=== PATIENT | female | born 2005 | race Caucasian/White ===

== ENCOUNTER 2024-09-05 13:44 | Outpatient (REF) | payer OTHER, SELFPAY ==
--- OUTSIDE RECORDS SUMMARY | 2024-09-05 14:56 | XMS_ITS | Clinical Summary ---
Author Organization [employer] Address [address] [facility] [address] [place] [address] Care Team Providers Care Biomedical Manager Name Role Phone Neva Her JACINTO Primary Care Provider [phone] Allergies No known active allergies Medications levonorgestrel-et hinyl estradiol (Aviane, Alesse, Lessina) 0.1-20 MG-MCG tabletIndications :Encounter for counseling regarding contraception Take 1 tablet by mouth in the morning. 90 tablet 3 3 Active albuterol 108 (90 Base) MCG/ACT inhaler Inhale 2 puffs every 4 (four) hours if needed for wheezing. 18 g 11 3 Active tretinoin (Retin-A) 0.025 % gel Apply topically at bedtime. 45 g 11 5 04/27/19 26 Active Mometasone Furoate (Asmanex HFA) 200 MCG/ACT aerosol 1 puff po bid 13 g 11 5 09/03/19 26 Active predniSONE (Deltasone) 20 MG tablet Take 2 tabs orally daily for 5 days 10 tablet 5 09/03/19 25 Active Problems Problem Noted Date Diagnosed Date Myopia 03/09/2017 Encounters Date Type Department Care Team Description 09/02/2024 Telephone [facility] MED [facility] P[facility] [address] [place] [address] Jackie Nagel MD 07/07/2024 Orders Only [facility] [address] [place] [address] Jackie Nagel MD Screening-pulmonary TB (Primary Dx) from Last 3 Months Immunizations Name Administration Dates Next Due DTaP 09/13/2008, 6,2004,10/31,2004 HPV 9-Valent 10/23/2016,02/20/2016 Hep A, ped/adol, 2 dose 02/08/2015,01/15/2014 Hep B, Adolescent or Pediatric 5,2004,2004,06/29 Hib (HbOC) 10/06/2005, 5,2004,09/02 IPV 09/13/2008, 5,2004,09/02 Influenza Injectable Quadriv alant Preservative Free IIV4 MDCK 01/18/2020,02/04/2017 Influenza injectable quadriv alent preservative free 04/02/2022,01/19/2021,03/13/2019,03/14,02/20/2016 Influenza live intranasal qu adrivalent LIAV4 01/28/2015,01/15/2014 Influenza, IIV3, injectable 02/15/2006, 5,03/04/2005 Influenza, live, intranasal 01/04/2013 MMR 09/13/2008,07/07/2005 Meningococcal MCV4P ACYW-135 11/14/2020,02/20/20 16 Pfizer Covid-19 Vaccine 12+ 08/30/2020, 1 Pneumococcal Conjugate PCV 7 10/06/2005, 2004,2004,09/02 Tdap 02/20/2016 Varicella 09/13/2008,07/07/2005 Social History Tobacco Use Types Packs/Day Years Used Date Smoking Tobacco: Never Smokeless Tobacco: Never Tobacco Cessation:Counseling Given: Not Answered Alcohol Use Standard Drinks/Week Comments Never 0 (1 standard drink = 0.6 oz pur e alcohol) Depression Answer Date Recorded Patient Health Questionnaire-9 Score 0 11/16/2022 Housing Stability Answer Date Recorded What is your housing situation today? I have [employer] cr 03/01/[address] you li ve. Do you have problems with any of the following? None of the above 03/01/2023 Food Insecurity Answer Date Recorded Within the past 12 months, y ou worried that your food would run out before you got money to buy more: Never True 03/01/2023 Within the past 12 months,th e food you bought just didn't last and you didn't have enough money to get more: Never True 09/2022 Utilities Answer Date Recorded In the past 12 months, has t he electric, gas, oil or water company threatened to shut off services in your home? No 03/01/2023 Depression Answer Date Recorded Patient Health Questionnaire-2 Score 0 11/16/2022 Comments Unknown Sex and Gender Information Value Date Recorded Sex Assigned at Female 02/23/2022 10:18 AM EDT Legal Sex Female 10:18 AM EDT Gender Identity Female 02/23/2022 10:18 AM EDT Sexual Orientation Bisexual 02/23/2022 10 :18 AM EDT Last Filed Vital Signs Vital Sign Reading Time Taken Comments Blood Pressure 105/60 11/16/2022 10:47 AM EDT Pulse 91 11/16/2022 10:47 AM EDT Temperature 37.1 ??C (98.8 ??F) 11/16/2022 1 0:47 AM EDT Respiratory Rate 16 11/16/2022 10:4 7 AM EDT Oxygen Saturation 100% 11/16/2022 10: 47 AM EDT Inhaled Oxygen Concentration - - Weight 50.7 kg (111 lb 12.8 oz) 023 10:47 AM EDT Height 157.5 cm (5' 2 ) 11/16/2022 10:4 7 AM EDT Body Mass Index 20.45 11/16/2022 10:47 AM EDT Plan of Treatment Health Maintenance Due Date Last Done Comments Chlamydia and Gonorrhea Screening 2004 HIV Screening 2004 Alcohol/Substance Use Screening 2016 Family Planning (PISQ) 06/30/2019 Hepatitis C Screening 2022 Depression Screening 11/17/2023 11/16/2022, 11/17/19 23 SDOH Screening 11/17/2023 11/16/2022 Tobacco Screening 11/24/2023 11/23/2022 COVID-19 Vaccine ( season) 2023 01/24/2022, 08/30/2020, 08/09/2020 Influenza Vaccine (#1) 2023 2, 01/19/2021, 01/18/2020, Additional history exists DTaP/Tdap/Td Vaccines (7 - Td or Tdap) 02/19/2026 02/20/2016, 09/13/2008, 10/06/2005, Additional history exists Zoster Vaccines (1 of 2) 2054 RSV Patients and Patients Aged 60 years or older (1 - 1-dose 75+ series) 06/30/2079 Hepatitis B Vaccines Completed 2004, 2004, 2004, Additional history exists HIB Vaccines Completed 10/06/2005, 09/2004, 2004, Additional history exists Pneumococcal Vaccine: Pediatrics (0 to 5 Years) and At-Risk Patients (6 to 49) Years) Aged Out 10/06/2005, 2004, 2004, Additional history exists No longer eligible based on patient's age to complete this topic IPV Vaccines Completed 09/13/2008, 09/2004, 2004, Additional history exists Hepatitis A Vaccines Completed 02/08/2015, 01/16/20 14 HPV Vaccines Completed 10/23/2016, 02/20/2016 Meningococcal Vaccine Completed 11/14/2020, 016 RSV under 20 months Aged Out No longe r eligible based on patient's age to complete this topic Rotavirus Vaccines Aged Out No longer eligible based on patient's age to complete this topic Insurance [facility] Care Teams Biomedical Manager Relationship Specialty Start Date End Date Neva Her NP [address] [place] [id number] PCP - General Family Medicine 10/22/23
--- OUTSIDE RECORDS SUMMARY | 2024-09-05 14:56 | XMS_ITS | Encounter Summary ---
Author Organization [employer] Address [address] [facility] [address] [place] [address] Care Team Providers Care Web Sizer Name Role Phone Oralia Smith MD Primary Care Provider [phone] Nathalie Wagner Primary Care Provider + Neva Her NP Primary Care Provider [phone] Encounter Details Date Type Department Care Team (Late st Contact Info) Description 05/25/2022 Orders Only [facility] MEDICINE [address] [place] [address] Jesika Rojas LPN Social History Tobacco Use Types Packs/Day Years Used Date Smoking Tobacco: Never Assessed Comments Unknown Sex and Gender Information Value Date Recorded Sex Assigned at Female 02/23/2022 10:18 AM EDT Legal Sex Female 10:18 AM EDT Gender Identity Female 02/23/2022 10:18 AM EDT Sexual Orientation Bisexual 02/23/2022 10 :18 AM EDT documented as of this encounter Plan of Treatment Not on file documented as of this encounter Visit Diagnoses Not on filedocumented in this encounter Care Teams Web Sizer Relationship Specialty Start Date End Date Oralia Smith MD [address] [place] [id number] PCP - General Pediatrics 03/09/17 12/22/22 Nathalie Wagner FNP [address] [place] [id number] PCP - General Family Medicine 12/23/22 10/21/23 Neva Her NP [address] [place] [phone] PCP - General Family Medicine 10/22/23 documented as of this encounter
--- OUTSIDE RECORDS SUMMARY | 2024-09-05 14:56 | XMS_ITS | Encounter Summary ---
Author Organization [employer] Address [address] [facility] [address] [place] [address] Care Team Providers Care Visual Lead Name Role Phone Neva Her JACINTO Primary Care Provider [phone] Encounter Details Date Type Department Care Team ([facility] st Contact Info) Description 09/02/2024 Telephone [facility] PEDS [address] [place], [place] [phone] Jackie Nagel MD [address] [place] [address] Social History Tobacco Use Types Packs/Day Years Used Date Smoking Tobacco: Never Smokeless Tobacco: Never Alcohol Use Standard Drinks/Week Comments Never 0 (1 standard drink = 0.6 oz pur e alcohol) Depression Answer Date Recorded Patient Health Questionnaire-9 Score 0 11/16/2022 Housing Stability Answer Date Recorded What is your housing situation today? 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
[2024-09-07 23:33] LABS: TS Negative Control Passed; TS Panel A 0; TS Panel B 0; TS Positive Control Passed; TSpotTB Negative (Negative)
== END 2024-09-05 13:45 | disposition home or self-care (01) ==
LOC: HO.LAB 13:44
PROVIDERS: PCP Nurse Practitioner Family; Visit Provider Pediatrics
DX: Z11.1 Encounter for screening for respiratory tuberculosis (principal)
CPT/HCPCS: 36415; 86481